=== PATIENT | female | born 1985 | race Caucasian/White ===

== ENCOUNTER 2021-01-15 22:03 | Inpatient (IN) | payer OTHER ==
--- NOTE | 2021-01-15 22:13 | ED ---
Psych HPI - General Stated Complaint: Mental Health Time Seen by Provider: 01/15/21 22:10 Source: RN notes reviewed, old records reviewed Limitations: no limitations - History of Present Illness Initial Comments: This is a 35-year-old female DF for evaluation patient does note she here for psychiatric evaluation with unsure of reason. Per history patient is a poor. Patient is not taking her medications at home she is petition by her mother states that she is noncompliant not active not doing anything not leaving the house and hasn't been acting appropriately. Patient himself denies suicidal or homicidal thoughts Complaint: feels depressed, altered mental status, other (Not taking psychiatric medication) -: days(s) Associated Psychiatric Symptoms: depression History of same: Yes Quality: constant, getting worse Improves With: none Worsens With: none Context: not taking psychiatric medications Associated Symptoms: denies other symptoms Treatments Prior to Arrival: placed on mental health hold - Related Data Home Medications Medication Instructions Recorded Confirmed Cholecalciferol (Vitamin D3) 125 mcg PO DAILY 01/15/21 01/15/21 [Vitamin D3 (5000 Iu)] Famotidine [Pepcid] 20 mg PO DAILY 01/15/21 01/15/21 Paliperidone [Invega] 9 mg PO DAILY 01/15/21 01/15/21 Venlafaxine HCl ER [Effexor XR] 150 mg PO DAILY 01/15/21 01/15/21 clonazePAM [KlonoPIN] 0.5 mg PO DAILY 01/15/21 01/15/21 clonazePAM [KlonoPIN] 1 mg PO HS 01/15/21 01/15/21 lamoTRIgine 100 mg PO BID 01/15/21 01/15/21 Allergies Allergy/AdvReac Type Severity Reaction Status Date / Time No Known Allergies Allergy Unverified 01/15/21 23:12 Review of Systems ROS Statement: Those systems with pertinent positive or pertinent negative responses have been documented in the HPI. ROS Other: All systems not noted in ROS Statement are negative. General Exam General appearance: alert, in no apparent distress Head exam: Present: atraumatic, normocephalic, normal inspection Eye exam: Present: normal appearance, PERRL, EOMI. Absent: scleral icterus, conjunctival injection, periorbital swelling ENT exam: Present: normal exam, mucous membranes moist Neck exam: Present: normal inspection. Absent: tenderness, meningismus, lymphadenopathy Respiratory exam: Present: normal lung sounds bilaterally. Absent: respiratory distress, wheezes, rales, rhonchi, stridor Cardiovascular Exam: Present: regular rate, normal rhythm, normal heart sounds. Absent: systolic murmur, diastolic murmur, rubs, gallop, clicks GI/Abdominal exam: Present: soft, normal bowel sounds. Absent: distended, tenderness, guarding, rebound, rigid Extremities exam: Present: normal inspection, full ROM, normal capillary refill. Absent: tenderness, pedal edema, joint swelling, calf tenderness Back exam: Present: normal inspection Neurological exam: Present: alert, oriented X3, CN II-XII intact Psychiatric exam: Present: normal affect, normal mood Skin exam: Present: warm, dry, intact, normal color. Absent: rash Course Vital Signs 01/15/21 22:11 Temperature 97.9 F Pulse Rate 88 Respiratory 18 Rate Blood Pressure 147/93 O2 Sat by Pulse 99 Oximetry - Reevaluation(s) Reevaluation #1: 01/16/21 02:16 Medical record is reviewed Reevaluation #2: 01/16/21 02:16 Patient medically clear for psychiatric evaluation Medical Decision Making - Medical Decision Making 35 female will be admitted for psychiatric evaluation and treatment - Lab Data Lab Results 01/15/21 Range/Units 23:13 Urine Opiates Screen Not Detected (NotDetected) Ur Oxycodone Screen Not Detected (NotDetected) Urine Methadone Screen Not Detected (NotDetected) Ur Propoxyphene Screen Not Detected (NotDetected) Ur Barbiturates Screen Not Detected (NotDetected) U Tricyclic Antidepress Not Detected (NotDetected) Ur Phencyclidine Scrn Not Detected (NotDetected) Ur Amphetamines Screen Not Detected (NotDetected) U Methamphetamines Scrn Not Detected (NotDetected) U Benzodiazepines Scrn Not Detected (NotDetected) Urine Cocaine Screen Not Detected (NotDetected) U Marijuana (THC) Screen Not Detected (NotDetected) Disposition Clinical Impression: Depression, Noncompliance with medication regimen Disposition: TRANSFER TO PSYCH HOSP/UNIT Condition: Fair Is patient prescribed a controlled substance at d/c from ED?: No Referrals: None,Stated [Primary Care Provider] - 1-2 days
[2021-01-15 23:51] LABS: Amphetamine Screen,Urine Not Detected (NotDetected); Barbiturate Screen,Urine Not Detected (NotDetected); Benzodiazepines Screen,Urine Not Detected (NotDetected); Cocaine Screen,Urine Not Detected (NotDetected); Methadone Screen, Urine Not Detected (NotDetected); Opiate Screen,Urine Not Detected (NotDetected); Oxycodone Screen, Urine Not Detected (NotDetected); Phencyclidine Screen,Urine Not Detected (NotDetected); Tricyclic Antidepressant,Urine Not Detected (NotDetected); Urn Cannabinoid Scrn Not Detected (NotDetected)
[2021-01-16 02:37] LABS: Appearance,Urine Cloudy (Clear); Bilirubin,Urine Negative (Negative); Blood,Urine Negative (Negative); Color,Urine Yellow; Glucose,Urine (UA) Negative (Negative); Hyaline Casts,Urine 11 /lpf (0-2); Ketones,Urine Negative (Negative); Leukocyte Esterase,Urine Small (Negative); Mucus,Urine Occasional /hpf; Nitrite,Urine Negative (Negative); PH, Urine 5.5 (5.0-8.0); Protein,Urine Negative (Negative); RBC,Urine 1 /hpf (0-5); Specific Gravity,Urine 1.015 (1.001-1.035); Squamous Epithelial Cell,Urine 4 /hpf (0-4); Urobilinogen,Urine <2.0 mg/dL (<2.0); WBC,Urine 4 /hpf (0-5)
[2021-01-16 02:48] LABS: Anisocytosis Slight; Basophils % (A) 0 %; Eosinophils # (A) 0.1 k/uL (0-0.7); Eosinophils % (A) 1 %; HCT 34.5 % (34.0-46.0); HGB 11.2 gm/dL (11.4-16.0); Hypochromasia Moderate; Lymphocytes # (A) 2.6 k/uL (1.0-4.8); Lymphocytes % (A) 29 %; MCH 22.5 pg (25.0-35.0); MCHC 32.4 g/dL (31.0-37.0); MCV 69.4 fL (80.0-100.0); Microcytosis Marked; Monocytes # (A) 0.6 k/uL (0-1.0); Monocytes % (A) 7 %; Neutrophils # (A) 5.7 k/uL (1.3-7.7); Neutrophils % (A) 62 %; Platelet Count 205 k/uL (150-450); RBC 4.97 m/uL (3.80-5.40); RDW 18.4 % (11.5-15.5); WBC 9.2 k/uL (3.8-10.6)
[2021-01-16 03:01] LABS: ALT 17 U/L (4-34); AST 20 U/L (14-36); African American GFR (CKD) >90 (>60 ml/min/1.73 sqM); Albumin 4.1 g/dL (3.5-5.0); Alkaline Phosphatase 82 U/L (38-126); Anion Gap 6 mmol/L; Blood Urea Nitrogen 12 mg/dL (7-17); Calcium 9.2 mg/dL (8.4-10.2); Carbon Dioxide 24 mmol/L (22-30); Chloride 109 mmol/L (98-107); Glucose 92 mg/dL (74-99); Non-African American GFR(CKD) >90 (>60 ml/min/1.73 sqM); Potassium 4.2 mmol/L (3.5-5.1); Sodium 139 mmol/L (137-145); Total Bilirubin 0.3 mg/dL (0.2-1.3); Total Protein 6.9 g/dL (6.3-8.2)
[2021-01-16] MEDS ORDERED: LORazepam 1 MG TAB PO PRN (03:45)
[2021-01-16] MEDS ORDERED: ACETAMINOPHEN TAB 325 MG TAB PO PRN (03:45)
[2021-01-16] MEDS ORDERED: MAG HYDROX/AL HYDROX/SIMETH 30 ML CUP PO PRN (03:45)
[2021-01-16] MEDS ORDERED: MAGNESIUM HYDROXIDE 2,400 MG/10 ML CUP PO PRN (03:45)
[2021-01-16] MEDS ORDERED: LORazepam 2 MG/ML INJ IM PRN (03:47)
[2021-01-16] MEDS ORDERED: HALOPERIDOL LACTATE 5 MG/ML 1 ML VIAL IM PRN (03:48)
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
[2021-01-16 14:05] LABS: Hemoglobin A1C 5.1 % (4.0-6.0)
--- NOTE | 2021-01-16 20:52 | P.MDCNMH ---
History of Present Illness H&P Date: 01/16/21 Chief Complaint: Abnormal behavior. Patient is a 35-year-old female with a known history of schizophrenia, anorexia was brought to the hospital by her family due to psychiatric evaluation. Patient has not been taking her medications and not following with mental health clinic. Patient was petitioned by her mother who states that she is noncompliant and not back to and not doing anything and has not been acting appropriately. Patient is a very poor historian. Denies any complaints of chest pain or shortness breath. No nausea vomiting or abdominal pain or diarrhea. Denied any fever or chills. No cough or sputum production. On admission blood pressure is 147/93 and pulse is 88 respiration 18 and pulse ox 90 was the room air. Laboratory data show WBC 9.2 hemoglobin 11.2 platelets 205 Sodium 139 potassium 4.2 chloride 109 BUN 12 and creatinine 0.73 AST ALT alk phos within normal limits and TSH level is 3.42 within normal limits urinalysis is negative for infection. UDS is negative Coronavirus PCR not detected Review of Systems Complete review of systems could not be obtained except as per HPI. Past Medical History Past Medical History: No Reported History History of Any Multi-Drug Resistant Organisms: None Reported Past Surgical History: Orthopedic Surgery Additional Past Surgical History / Comment(s): Tibial/fibial spiral fracture Smoking Status: Never smoker Medications and Allergies Home Medications Medication Instructions Recorded Confirmed Type Cholecalciferol (Vitamin D3) 125 mcg PO DAILY 01/15/21 01/16/21 History [Vitamin D3 (5000 Iu)] Famotidine [Pepcid] 20 mg PO DAILY 01/15/21 01/16/21 History Paliperidone [Invega] 9 mg PO DAILY 01/15/21 01/16/21 History Venlafaxine HCl ER [Effexor XR] 150 mg PO DAILY 01/15/21 01/16/21 History clonazePAM [KlonoPIN] 0.5 mg PO DAILY 01/15/21 01/16/21 History clonazePAM [KlonoPIN] 1 mg PO HS 01/15/21 01/16/21 History lamoTRIgine 100 mg PO BID 01/15/21 01/16/21 History Allergies Allergy/AdvReac Type Severity Reaction Status Date / Time No Known Allergies Allergy Unverified 01/16/21 03:49 Physical Exam Vitals: Vital Signs Temp Pulse Pulse Resp BP BP Pulse Ox 01/16/21 04:01 97.4 F L 95 16 128/83 97 01/15/21 22:11 97.9 F 88 18 147/93 99 Intake and Output 01/16/21 01/16/21 01/16/21 06:59 14:59 22:59 Other: Weight 124.965 kg PHYSICAL EXAMINATION: Patient is lying in the bed comfortably, no acute distress, awake alert and oriented.. HEENT: Normocephalic. Neck is supple. Pupils reactive. Nostrils clear. Oral cavity is moist. Neck reveals no JVD, carotid bruits, or thyromegaly. CHEST EXAMINATION: Trachea is central. Symmetrical expansion. Lung bernal clear to auscultation and percussion. CARDIAC: Normal S1, S2 with no gallops. No murmurs ABDOMEN: Soft. Bowel sounds normal. No organomegaly. No abdominal bruits. Extremities: reveal no edema. No clubbing or cyanosis Neurologically awake, alert, oriented x2-3 with well-coordinated movements. No focal deficits noted Skin: No rash or skin lesions. Facial hair present. Psychiatric: Coperative. Denied suicidal ideation. Musculoskeletal: No joint swelling or deformity. Normal range of motion. Cranial Nerve Examination - Cranial Nerves Cranial Nerve I- Olfactory: Intact Cranial Nerve II- Optic: Intact Cranial Nerve III- Oculomotor: Intact Cranial Nerve IV- Trochlear: Intact Cranial Nerve V- Trigeminal: Intact Cranial Nerve - Abducens: Intact Cranial Nerve VII- Facial: Intact Cranial Nerve VIII- Auditory: Intact Cranial Nerve IX- Glossopharyngeal: Intact Cranial Nerve X- Vagus: Intact Cranial Nerve XI- Accessory: Intact Cranial Nerve XII- Hypoglossal: Intact Results CBC & Chem 7: 01/16/21 01:42 01/16/21 01:42 Labs: Abnormal Lab Results - Last 24 Hours (Table) 01/15/21 01/16/21 01/16/21 Range/Units 23:10 01:42 01:42 Hgb 11.2 L (11.4-16.0) gm/dL MCV 69.4 L (80.0-100.0) fL MCH 22.5 L (25.0-35.0) pg RDW 18.4 H (11.5-15.5) % Chloride 109 H (98-107) mmol/L Urine Appearance Cloudy H (Clear) Ur Leukocyte Esterase Small H (Negative) Hyaline Casts 11 H (0-2) /lpf Urine Mucus Occasional H (None) /hpf Assessment and Plan Assessment: Schizophrenia Noncompliant with medications and follow-up. History of schizophrenia and anorexia Elevated blood pressures on admission due to agitation. Improved now. DVT prophylaxis with early ambulation Plan: Patient will be continued on current psychiatric medications and management. Haldol as needed for agitation. Continued on home medications and will follow with you. Thank you for your consult.
[2021-01-16] MEDS: PALIPERIDONE 3 MG TAB.ER.24 PO SCH (21:34)
[2021-01-17] MEDS: LORazepam 1 MG TAB PO SCH ×4 (15:10→21:44)
[2021-01-17] MEDS: PALIPERIDONE 6 MG TAB.ER.24 PO SCH (15:11)
--- NOTE | 2021-01-17 19:39 | PN ---
PROGRESS NOTE DATE OF SERVICE: 01/17/2021 CHIEF COMPLAINT: The patient was responding to internal stimuli. She stopped taking medications. She has disorganized behavior. INTERVAL HISTORY: The patient has been doing fair. She had a quiet day yesterday. She will come out on the unit, though mostly she keeps to herself. She seems to pay attention to things going on around her, though she does not interact too much with others. She attended one group yesterday and seemed to generally respond appropriately within the group setting. She did not go to other groups. She spent a fair amount of time in her room. She slept fairly well last night. Today she has been doing about the same. She has spent much of the day in her room lying in bed. It is not clear that she actually is sleeping. When I talked to her the patient gave permission for me to call her significant other who is currently residing in [place] where the two of them had been living. Her significant other is in the [employer] and apparently is in the process of being re-stationed. The circumstances of the patient actually coming to [place] is somewhat unclear. It is noted that the patient was hospitalized in [place] for 40 days. Apparently she has been having problems on and off going back to 2014. She would have episodes where she would suddenly become distressed. She would make odd noises that ultimately would turn into screaming. Leading up to her hospitalization in [place] she was becoming more and more dysfunctional to the point where she would barely be able to function at all. 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 She got to the point where she was not at all able to communicate and sometimes could only get one word out and other times not even that. During her hospitalization in [place] she received 11 ECT treatments for catatonia along with psychosis. She showed some improvement. When she was relocated to [place] she got started on Invega and her significant other noted that she improved even more where she could engage much more in a normal conversation. She could talk about making plans and so forth. She has been living with her mother. The significant other noted on December 17 she just suddenly stop taking her medications altogether. It was unclear what the reason was for this, though since then she has gone down hill precipitously. She has gotten back into where she has less and less communication. She has been functioning poorly at home. She stopped responding to any telephone calls from her significant other in the past week for no clear reason. When I talked to the patient she did not provide much information. She would respond to basic questions though then often would have more of a staring gaze than anything else. She would have a fixed smile on her face at times. She has been taking medications and does not note any side effects or problems with her medications. MENTAL STATUS EXAM: The patient sat without restlessness. She had a somewhat rigid posture. She gave fairly good eye contact, though at times almost seemed to have a staring gaze. She responded minimally to questions though she would get out 1 or 2 word responses. At times she would have a smile on her face that seemed to be incongruent with the issues we were talking about. Her affect was constricted, her mood reserved. It was difficult to be clear to what extent she might be distressed. She seemed to show some response to internal stimuli. There was no indication of thoughts of harm. She appeared to be aware of circumstances and surroundings. ASSESSMENT: I will continue the current diagnosis and treatment plan. I will increase Invega to 6 mg in the morning and continue 3 mg at bedtime. I will also start the patient on Ativan 1 mg 3 times a day. The aim of Ativan is to address potential catatonic symptoms. We will monitor over the next 1 or 2 days to see if she does show response as an indicator for some issues of catatonia in addition to her psychosis. The patient's mother will be bringing in hospital records from the stay in [place] as apparently she has all of the records available. We will focus on stabilization and discharge planning. MMWM / VASILIYN: [id number] /
[2021-01-17] MEDS: PALIPERIDONE 3 MG TAB.ER.24 PO SCH (21:42)
[2021-01-18] MEDS: LORazepam 1 MG TAB PO SCH ×3 (09:18→21:32)
[2021-01-18] MEDS: PALIPERIDONE 6 MG TAB.ER.24 PO SCH (09:18)
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
[2021-01-18] MEDS: PALIPERIDONE 3 MG TAB.ER.24 PO SCH (21:32)
[2021-01-19] MEDS: PALIPERIDONE 6 MG TAB.ER.24 PO SCH (08:12)
[2021-01-19] MEDS: LORazepam 1 MG TAB PO SCH ×3 (08:12→23:58)
[2021-01-19] MEDS: PALIPERIDONE 3 MG TAB.ER.24 PO SCH (21:04)
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
[2021-01-20] MEDS: PALIPERIDONE 6 MG TAB.ER.24 PO SCH (09:20)
[2021-01-20] MEDS: LORazepam 1 MG TAB PO SCH ×3 (09:21→20:57)
[2021-01-20] MEDS ORDERED: PALIPERIDONE IM 234 MG/1.5 ML SYG IM STA (10:58)
--- NOTE | 2021-01-20 19:16 | PN ---
PROGRESS NOTE DATE OF SERVICE: 01/20/2021. CHIEF COMPLAINT: The patient was responding to internal stimuli. She stopped taking medications. She had disorganized behavior. INTERVAL HISTORY: Patient has been doing fair. She had a quiet day yesterday. She spent a fair amount of time in her room. She did come out for one group. She was out in the day area some. She slept fairly well last night, today she has been up. She did attend a noon group today. It is noted that mid day she was seeing walking back and forth in a very brisk manner with her arms pulled up almost as if she was in a running posture. She was resistant to being interrupted during the walking, which seemed to be a therapeutic or exercise walk for her. When I talked to her after the walk. She did not say much. She did answer a few questions. She has had no issues with the start of the Invega Sustenna. She seemed to have fair understanding of the petition process and is still on standby waiting to make a determination in regards to a deferral. She tolerates her psychotropic medications. MENTAL STATUS: Patient gave fair eye contact. She was fairly restless. She answered some questions with brief responses. She did not say a lot. Her affect was constricted. She had a quiet mood. It was noteworthy that she did not have any odd behavior or any signs of catatonic symptoms. Did not show odd facial expressions that she had been in the last few days. She does seem to respond to internal stimuli. She did not indicate any thoughts of harm. Cognition appeared clear. ASSESSMENT: I will continue the current diagnosis and treatment plan. The patient did receive Invega Sustenna 234 mg IM. I will continue oral Invega 6 mg in the morning, 3 mg in the evening. I would look to slowly taper the oral Invega. She will be due for her followup injection in one week. We still have court issues pending. I reviewed an extensive number of records that mother provided regarding medical evaluations and her hospitalization in [place]. It is noted that she had an endocrine evaluation due to hirsutism. There were no definitive findings, though there was suggestion of having followup studies for possible Ghada's syndrome or other adrenal disorders. We will focus on stabilization and discharge planning. MMODL / IJN: [id number] /
[2021-01-20] MEDS: PALIPERIDONE 3 MG TAB.ER.24 PO SCH (20:56)
[2021-01-21] MEDS: PALIPERIDONE 6 MG TAB.ER.24 PO SCH (09:55)
[2021-01-21] MEDS: LORazepam 1 MG TAB PO SCH ×3 (09:55→22:29)
--- NOTE | 2021-01-21 10:07 | P.PN ---
Progress Note - Text Progress Note Date: 01/21/21 Interval History: Patient was seen wandering the hallways and was directable and agreeable to speak with senior mortgage underwriter in the office. The patient reports that she is doing well. She did receive Invega Sustenna yesterday and is not endorsing any significant side effects aside from muscle soreness at the injection site. She continues to spend her days wandering the hallways. The patient continues to display significantly poor insight into her condition as she is uncertain about the reason for her hospitalization or her need for medications. She is denying any overt auditory or visual hallucinations. She is denying any suicidal or homicidal ideation, intention, and/or plan. She denies any issues regarding her appetite or sleep. The patient does state that she feels like she is currently admitted to the hospital because her mother and "do not like me." The p atmu was unable to expand, but replies that, "if they liked me they wouldn't put me on medications." Mental Status Exam: General Appearance: Patient appears to be stated age is alert, directable, and cooperative. Patient is tall and large significant hirsutism. Behavior: Patient is calmly seated without any agitated behavior. Eye contact is appropriate. Psychomotor activity appears normal. Speech: Patient's speech is fluent and nonpressured. Monotone, nonspontaneous. Mood/Affect: Mood is "feeling okay." Affect is blunted. Suicidality/Homicidality: Patient is not reporting any suicidal or homicidal ideation, intention, and/or plan. Perceptions: The patient is not endorsing any auditory or visual hallucinations. She does appear to be her spine to internal stimuli at times. Though content/process: Some delusional thought content towards the patient's mother and present. Memory and concentration: AOX3, grossly intact for the purposes of this session Judgment and insight: Poor Vital Signs Temp 97.9 F 01/20/21 06:41 Pulse 87 01/20/21 06:41 Resp 16 01/20/21 06:41 BP 128/72 01/20/21 06:41 Pulse Ox 97 01/16/21 04:01 Assessment Schizophrenia Plan: -Patient continues to meet criteria for inpatient psychiatric admission for symptom stabilization and safety. The patient has been petitioned and certified. She deferred mental health court. -Medications: Continue Invega 6 mg by mouth daily, 3 mg by mouth at bedtime for mood stabilization/psychosis. Patient received Invega Sustenna 234 mg IM on 01/20/21. -When necessary Ativan and Haldol for agitation/aggression. -SW on board for discharge planning. Encouraged the patient to participate in milieu.
[2021-01-21] MEDS: PALIPERIDONE 3 MG TAB.ER.24 PO SCH (20:52)
[2021-01-22] MEDS: PALIPERIDONE 6 MG TAB.ER.24 PO SCH (09:07)
[2021-01-22] MEDS: LORazepam 1 MG TAB PO SCH ×2 (09:07→19:25)
--- NOTE | 2021-01-22 12:07 | P.PN ---
Progress Note - Text Progress Note Date: 01/22/21 Interval History: Patient was seen wandering the hallways and was directable and agreeable to s addison with credit underwriter in the office. The patient reports she is doing well. She is currently not endorsing any suicidal or homicidal ideation, intention, and/or plan. She reports no auditory or visual hallucinations. She denies any paranoia or delusions. She reports no issues with sleep or appetite. She has been noted by staff to be walking briskly on the unit as a form of exercise. The patient continues to have poor insight into why she is currently admitted to the hospital but has been intermittently agreeable with treatment. She did receive invega sustenna but refused her morning oral medication dose. She is not reporting any side effects of her medications. As per discussion with her mother, the patient has displayed improvement but continues to exhibit poor insight. She is more open and talking more with her family. Mental Status Exam: General Appearance: Patient appears to be stated age is alert, directable, and cooperative. Patient is tall and large significant hirsutism. Behavior: Patient is calmly seated without any agitated behavior. Eye contact is appropriate. Psychomotor activity appears normal. Speech: Patient's speech is fluent and nonpressured. Monotone, nonspontaneous. Mood/Affect: Mood is "feeling okay." Affect is constricted but bright. Suicidality/Homicidality: Patient is not reporting any suicidal or homicidal ideation, intention, and/or plan. Perceptions: Patient is not reporting any auditory or visual hallucinations. Though content/process: No delusional thought content is endorsed today. Memory and concentration: AOX3, grossly intact for the purposes of this session Judgment and insight: Mildly improving Vital Signs Temp 97.9 F 01/20/21 06:41 Pulse 87 01/20/21 06:41 Resp 16 01/20/21 06:41 BP 128/72 01/20/21 06:41 Pulse Ox 97 01/16/21 04:01 Assessment Schizophrenia Plan: -Patient continues to meet criteria for inpatient psychiatric admission for symptom stabilization and safety. The patient has been petitioned and certified. She deferred mental health court. -Medications: Continue Invega 6 mg by mouth at bedtime for psychosis. Patient received Invega Sustenna 234 mg IM on 01/20/21. We will give the second loading dose of Invega Sustenna on Tuesday01/26/21. -When necessary Ativan and Haldol for agitation/aggression. -SW on board for discharge planning. Encouraged the patient to participate in milieu.
[2021-01-22] MEDS ORDERED: PALIPERIDONE 6 MG TAB.ER.24 PO SCH (21:00)
[2021-01-23] MEDS: LORazepam 1 MG TAB PO SCH ×4 (05:34→22:50)
--- NOTE | 2021-01-23 12:43 | P.PN ---
Progress Note - Text Progress Note Date: 01/23/21 Interval History: Patient was seen wandering the hallways and was directable and agreeable to s dinah with engineering writer in the office. The patient reports that she is doing well. She is currently not reporting any suicidal or homicidal ideation, intention, and/or plan. She is not reporting any auditory or visual hallucinations. She is denying any paranoia or other delusions. The patient reports she spends most of her days reading the novel "[employer]." The patient also reports that she has been speaking to her mother over the phone daily. She has been in adherent with her medication is not reporting any significant side effects at this time. Patient is agreeable to receiving the secondInvega Sustenna. She is looking for to discharge on Tuesday. The patient wanders the hallways as a form of exercise. She intermittently attends groups. Mental Status Exam: General Appearance: Patient appears to be stated age is alert, directable, and cooperative. Patient is tall and large significant hirsutism. Behavior: Patient is calmly seated without any agitated behavior. Eye contact is appropriate. Psychomotor activity appears normal. Speech: Patient's speech is fluent and nonpressured. Monotone, nonspontaneous. Mood/Affect: Mood is "doing good." Affect is constricted but bright. Suicidality/Homicidality: Patient is not reporting any suicidal or homicidal ideation, intention, and/or plan. Perceptions: Patient is not reporting any auditory or visual hallucinations. Though content/process: No delusional thought content is endorsed today. Memory and concentration: AOX3, grossly intact for the purposes of this session Judgment and insight: Mildly improving Vital Signs Temp 97.7 F 01/23/21 06:46 Pulse 86 01/23/21 06:46 Resp 18 01/23/21 06:46 BP 123/85 01/23/21 06:46 Pulse Ox 97 01/16/21 04:01 Assessment Schizophrenia Plan: -Patient continues to meet criteria for inpatient psychiatric admission for symptom stabilization and safety. The patient has been petitioned and certified. She deferred mental health court. -Medications: Consider starting metformin Decrease Invega to 3 mg by mouth at bedtime for psychosis. Patient received Invega Sustenna 234 mg IM on 01/20/21. We will give the second loading dose of Invega Sustenna on Tuesday01/26/21. -When necessary Ativan and Haldol for agitation/aggression. -SW on board for discharge planning. Encouraged the patient to participate in milieu.
[2021-01-23] MEDS: PALIPERIDONE 3 MG TAB.ER.24 PO SCH (22:28)
[2021-01-24] MEDS: metFORMIN 500 MG TAB PO SCH ×2 (08:59→16:59)
[2021-01-24] MEDS: LORazepam 1 MG TAB PO SCH ×3 (08:59→21:14)
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
[2021-01-24] MEDS: PALIPERIDONE 3 MG TAB.ER.24 PO SCH (21:14)
[2021-01-25] MEDS: LORazepam 1 MG TAB PO SCH ×3 (08:47→22:02)
[2021-01-25] MEDS: metFORMIN 500 MG TAB PO SCH ×2 (08:47→17:08)
[2021-01-25] MEDS ORDERED: PALIPERIDONE IM 156 MG/ML SYG IM ONE (09:00)
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
[2021-01-25] MEDS: PALIPERIDONE 3 MG TAB.ER.24 PO SCH (22:02)
[2021-01-26 06:46] VITALS: BP 101/55; PULSE 78; RESP 16; TEMP 97.3
[2021-01-26] MEDS: LORazepam 1 MG TAB PO SCH (09:29)
[2021-01-26] MEDS: metFORMIN 500 MG TAB PO SCH (09:29)
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
== END 2021-01-26 12:44 | disposition home or self-care (01) | DRG 885 ==
LOC: EC 22:03 → 3MHU 01-16 03:33
PROVIDERS: ADMIT Psychiatry & Neurology Psychiatry; ATTEND Psychiatry & Neurology Psychiatry
DX: F20.9 Schizophrenia, unspecified (principal); F32.9 Major depressive disorder, single episode, unspecified; L68.0 Hirsutism; Z79.84 Long term (current) use of oral hypoglycemic drugs; Z79.899 Other long term (current) drug therapy; Z81.8 Family history of other mental and behavioral disorders; Z91.14 Patient's other noncompliance with medication regimen; Z91.19 Patient's noncompliance with other medical treatment and regimen; Z20.822 Contact with and (suspected) exposure to COVID-19
CPT/HCPCS: 36415; 80053; 80306; 81001; 81025; 82075; 83036; 84443; 85025; 87635; 99285

== ENCOUNTER 2024-10-03 13:48 | Emergency (ER) | payer OTHER ==
[2024-10-03 13:53] VITALS: TEMP 97.4
[2024-10-03 14:36] LABS: Basophils % (A) 0 %; Eosinophils # (A) 0.1 k/uL (0-0.7); Eosinophils % (A) 1 %; HCT 45.4 % (34.0-46.0); HGB 13.9 gm/dL (11.4-16.0); Lymphocytes # (A) 2.2 k/uL (1.0-4.8); Lymphocytes % (A) 24 %; MCH 25.7 pg (25.0-35.0); MCHC 30.7 g/dL (31.0-37.0); MCV 83.7 fL (80.0-100.0); Mean Platelet Volume 7.7; Monocytes # (A) 0.5 k/uL (0-1.0); Monocytes % (A) 5 %; Neutrophils # (A) 6.2 k/uL (1.3-7.7); Neutrophils % (A) 68 %; Platelet Count 239 k/uL (150-450); RBC 5.43 m/uL (3.80-5.40); RDW 15.6 % (11.5-15.5); WBC 9.2 k/uL (3.8-10.6)
--- NOTE | 2024-10-03 14:38 | ED ---
General Adult HPI - General Chief complaint: Arrhythmia/Palpitations Stated complaint: heart issue Time Seen by Provider: 10/03/24 14:00 Source: patient, RN notes reviewed, old records reviewed Mode of arrival: ambulatory Limitations: no limitations - History of Present Illness Initial comments: This is a 39-year-old female who has a past medical history significant for schizophrenia. Patient states that her heart told her to come to the ER. According to the mother she has been indicating that someone was going on with her heart but she is not able to describe what she denies pain she denies shortness of breath she denies her heart racing fast. Patient denies any recent fever chills or cough. Patient denies any drug use and mom states the patient does not have any access to drugs. Mom states is very difficult to understand exactly her complaint because she cannot express herself very well but she does indicate that she feels different and so mom wants her at least checked out. - Related Data Previous Rx's Medication Instructions Recorded Cholecalciferol (Vitamin D3) 125 mcg PO DAILY 30 Days cap 01/26/21 [Vitamin D3 (5000 Iu)] Paliperidone IM [Invega Sustenna] 156 mg IM QMONTHLY #1 syr 01/26/21 metFORMIN HCL [Glucophage] 500 mg PO BID-W/MEALS 30 Days tab 01/26/21 Allergies Allergy/AdvReac Type Severity Reaction Status Date / Time No Known Allergies Allergy Verified 10/03/24 13:53 Review of Systems ROS Statement: Those systems with pertinent positive or pertinent negative responses have been documented in the HPI. ROS Other: All systems not noted in ROS Statement are negative. Past Medical History Past Medical History: No Reported History, Hypertension History of Any Multi-Drug Resistant Organisms: None Reported Past Surgical History: Orthopedic Surgery Additional Past Surgical History / Comment(s): Tibial/fibial spiral fracture Past Psychological History: Schizophrenia Smoking Status: Never smoker Past Alcohol Use History: Occasional Past Drug Use History: None Reported General Exam - General Exam Comments Initial Comments: GENERAL: Patient is well-developed and well-nourished. Patient is nontoxic and well- hydrated and is in no acute distress. ENT: Neck is soft and supple. No significant lymphadenopathy is noted. Oropharynx is clear. Moist mucous membranes. Neck has full range of motion without eliciting any pain. EYES: The sclera were anicteric and conjunctiva were pink and moist. Extraocular movements were intact and pupils were equal round and reactive to light. Eyelids were unremarkable. PULMONARY: Unlabored respirations. Good breath sounds bilaterally. No audible rales rhonchi or wheezing was noted. CARDIOVASCULAR: There is a regular rate and rhythm without any murmurs gallops or rubs. ABDOMEN: Soft and nontender with normal bowel sounds. SKIN: Skin is clear with no lesions or rashes and otherwise unremarkable. NEUROLOGIC: Patient is alert and oriented x3. Cranial nerves II through XII are grossly intact. Motor and sensory are also intact. Normal speech, volume and content. Symmetrical smile. MUSCULOSKELETAL: Normal extremities with adequate strength and full range of motion. No lower extremity swelling or edema. No calf tenderness. LYMPHATICS: No significant lymphadenopathy is noted PSYCHIATRIC: Normal psychiatric evaluation. Limitations: no limitations Course Vital Signs 10/03/24 10/03/24 10/03/24 13:49 14:30 15:00 Temperature 97.4 F L Pulse Rate 98 96 81 Respiratory 18 21 21 Rate Blood Pressure 169/121 151/89 151/89 O2 Sat by Pulse 98 93 L 95 Oximetry 10/03/24 15:08 Temperature Pulse Rate 84 Respiratory 18 Rate Blood Pressure 136/88 O2 Sat by Pulse 96 Oximetry Medical Decision Making - Medical Decision Making EKG is interpreted by myself. EKG shows sinus rhythm at 91 bpm UT was under 48 QRS is 86 QT interval 333 QTc is 382. Patient's EKG shows no ST segment elevation or depression. Was pt. sent in by a medical professional or institution (, [facility], TECHNICAL PRODUCER, urgent care, hospital, or retirement...) When possible be specific @ -No Did you speak to anyone other than the patient for history (EMS, parent, family, police, friend...)? What history was obtained from this source @ -No Did you review nursing and triage notes (agree or disagree)? Why? @ -I reviewed and agree with nursing and triage notes Were old charts reviewed (outside hosp., previous admission, EMS record, old EKG, old radiological studies, urgent care reports/EKG's, retirement records)? Report findings @ -No old charts were reviewed Differential Diagnosis? @ -Differential Palpitations Ventricular arrhythmias, atrial arrhythmias, myocardial infarction, anemia, thyrotoxicosis, electrolyte imbalance, hypokalemia, pulmonary embolism, pulmonar y disease, drugs, alcohol, anxiety, stress.... This is not meant to be an all-inclusive list. EKG interpreted by me (3pts min.). @ -As above X-rays interpreted by me (1pt min.). @ -Chest x-ray shows no acute abdominal CT interpreted by me (1pt min.). @ -CTA of the chest shows no pulmonary embolism or acute abnormality U/S interpreted by me (1pt. min.). @ -None done What testing was considered but not performed or refused? (CT, X-rays, U/S, labs)? Why? @ -None What meds were considered but not given or refused? Why? @ -None Did you discuss the management of the patient with other professionals (professionals i.e. , PA, TECHNICAL PRODUCER, lab, RT, psych nurse, social services specialist, record tabulating clerk, teacher, chief media officer, binder caser)? Give summary @ -No Was smoking cessation discussed for >3mins.? @ -No Was critical care preformed (if so, how long)? @ -No Were there social determinants of health that impacted care today? How? (Homelessness, low income, unemployed, alcoholism, drug addiction, transportation, low edu. Level, literacy, decrease access to med. care, shelter, rehab)? @ -No Was there de-escalation of care discussed even if they declined (Discuss DNR or withdrawal of care, Hospice)? DNR status @ -No What co-morbidities impacted this encounter? (DM, HTN, Smoking, COPD, CAD, Cancer, CVA, ARF, Chemo, Hep., AIDS, mental health diagnosis, sleep apnea, morbid obesity)? @ -None Was patient admitted / discharged? Hospital course, mention meds given and route, prescriptions, significant lab abnormalities, going to OR and other pertinent info. @ -Patient was in no distress throughout her ED stay I went back to give the results to her the patient and her mother and at this time she had no complaints. Undiagnosed new problem with uncertain prognosis? @ -No Drug Therapy requiring intensive monitoring for toxicity (Heparin, Nitro, Insulin, Cardizem)? @ -No Were any procedures done? @ -No Diagnosis/symptom? @ -Palpitations Acute, or Chronic, or Acute on Chronic? @ -Acute Uncomplicated (without systemic symptoms) or Complicated (systemic symptoms)? @ -Complicated Side effects of treatment? @ -No Exacerbation, Progression, or Severe Exacerbation? @ -No Poses a threat to life or bodily function? How? (Chest pain, [place], [place], pneumonia, PE, COPD, DKA, ARF, appy, cholecystitis, CVA, Diverticulitis, Homicidal, Suicidal, threat to staff... and all critical care pts) @ -No - Lab Data Result diagrams: 10/03/24 14:28 10/03/24 14:28 Lab Results 10/03/24 10/03/24 10/03/24 Range/Units 14:28 14:28 14:28 WBC 9.2 (3.8-10.6) k/uL RBC 5.43 H (3.80-5.40) m/uL Hgb 13.9 (11.4-16.0) gm/dL Hct 45.4 (34.0-46.0) % MCV 83.7 (80.0-100.0) fL MCH 25.7 (25.0-35.0) pg MCHC 30.7 L (31.0-37.0) g/dL RDW 15.6 H (11.5-15.5) % Plt Count 239 (150-450) k/uL MPV 7.7 Neutrophils % 68 % Lymphocytes % 24 % Monocytes % 5 % Eosinophils % 1 % Basophils % 0 % Neutrophils # 6.2 (1.3-7.7) k/uL Lymphocytes # 2.2 (1.0-4.8) k/uL Monocytes # 0.5 (0-1.0) k/uL Eosinophils # 0.1 (0-0.7) k/uL Basophils # 0.0 (0-0.2) k/uL PT 10.8 (10.0-12.5) sec INR 1.0 (<1.2) APTT 23.4 (22.0-30.0) sec D-Dimer 0.85 H (<0.60) mg/L FEU Sodium 137 (137-145) mmol/L Potassium 4.2 (3.5-5.1) mmol/L Chloride 101 (98-107) mmol/L Carbon Dioxide 26 (22-30) mmol/L Anion Gap 10 mmol/L BUN 13 (7-17) mg/dL Creatinine 0.73 (0.52-1.04) mg/dL Est GFR (CKD-EPI)AfAm >90 (>60 ml/min/1.73 sqM) Est GFR (CKD-EPI)NonAf >90 (>60 ml/min/1.73 sqM) Glucose 130 H (74-99) mg/dL Calcium 9.9 (8.4-10.2) mg/dL Magnesium 1.9 (1.6-2.3) mg/dL Total Bilirubin 0.5 (0.2-1.3) mg/dL AST 29 (14-36) U/L ALT 32 (4-34) U/L Alkaline Phosphatase 84 (38-126) U/L Troponin I (0.000-0.034) ng/mL Total Protein 7.6 (6.3-8.2) g/dL Albumin 4.6 (3.5-5.0) g/dL TSH 2.320 (0.465-4.680) mIU/L 10/03/24 Range/Units 14:28 WBC (3.8-10.6) k/uL RBC (3.80-5.40) m/uL Hgb (11.4-16.0) gm/dL Hct (34.0-46.0) % MCV (80.0-100.0) fL MCH (25.0-35.0) pg MCHC (31.0-37.0) g/dL RDW (11.5-15.5) % Plt Count (150-450) k/uL MPV Neutrophils % % Lymphocytes % % Monocytes % % Eosinophils % % Basophils % % Neutrophils # (1.3-7.7) k/uL Lymphocytes # (1.0-4.8) k/uL Monocytes # (0-1.0) k/uL Eosinophils # (0-0.7) k/uL Basophils # (0-0.2) k/uL PT (10.0-12.5) sec INR (<1.2) APTT (22.0-30.0) sec D-Dimer (<0.60) mg/L FEU Sodium (137-145) mmol/L Potassium (3.5-5.1) mmol/L Chloride (98-107) mmol/L Carbon Dioxide (22-30) mmol/L Anion Gap mmol/L BUN (7-17) mg/dL Creatinine (0.52-1.04) mg/dL Est GFR (CKD-EPI)AfAm (>60 ml/min/1.73 sqM) Est GFR (CKD-EPI)NonAf (>60 ml/min/1.73 sqM) Glucose (74-99) mg/dL Calcium (8.4-10.2) mg/dL Magnesium (1.6-2.3) mg/dL Total Bilirubin (0.2-1.3) mg/dL AST (14-36) U/L ALT (4-34) U/L Alkaline Phosphatase (38-126) U/L Troponin I <0.012 (0.000-0.034) ng/mL Total Protein (6.3-8.2) g/dL Albumin (3.5-5.0) g/dL TSH (0.465-4.680) mIU/L Disposition Clinical Impression: Palpitations Disposition: HOME SELF-CARE Condition: Good Instructions (If sedation given, give patient instructions): Heart Palpitations (ED) Is patient prescribed a controlled substance at d/c from ED?: No Referrals: Gerard Landers MD [Primary Care Provider] - 1-2 days Time of Disposition: 16:16
--- NOTE | 2024-10-03 14:40 | XR ---
EXAMINATION TYPE: XR chest 2V DATE OF EXAM: 10/03/2024 2:36 PM COMPARISON: None TECHNIQUE: XR chest 2V Frontal and lateral views of the chest. CLINICAL INDICATION:Female, 39 years old with history of dysrhythmia; FINDINGS: Lungs/Pleura: There is no evidence of pleural effusion, focal consolidation, or pneumothorax. Pulmonary vascularity: Unremarkable. Heart/mediastinum: Cardiomediastinal silhouette is unremarkable. Musculoskeletal: No acute osseous pathology. IMPRESSION: No acute cardiopulmonary disease/process. [facility], , 10/03/2024 2:37 PM
[2024-10-03 14:46] LABS: ALT 32 U/L (4-34); AST 29 U/L (14-36); African American GFR (CKD) >90 (>60 ml/min/1.73 sqM); Albumin 4.6 g/dL (3.5-5.0); Alkaline Phosphatase 84 U/L (38-126); Anion Gap 10 mmol/L; Blood Urea Nitrogen 13 mg/dL (7-17); Calcium 9.9 mg/dL (8.4-10.2); Carbon Dioxide 26 mmol/L (22-30); Chloride 101 mmol/L (98-107); Glucose 130 mg/dL (74-99); Magnesium 1.9 mg/dL (1.6-2.3); Non-African American GFR(CKD) >90 (>60 ml/min/1.73 sqM); Potassium 4.2 mmol/L (3.5-5.1); Sodium 137 mmol/L (137-145); Total Bilirubin 0.5 mg/dL (0.2-1.3); Total Protein 7.6 g/dL (6.3-8.2)
[2024-10-03 14:49] LABS: Partial Thromboplastin Time 23.4 sec (22.0-30.0); Prothrombin Time 10.8 sec (10.0-12.5)
[2024-10-03 15:10] VITALS: RESP 18
--- NOTE | 2024-10-03 15:45 | CT ---
EXAMINATION TYPE: CT chest angio for PE DATE OF EXAM: 10/03/2024 COMPARISON: None CLINICAL INDICATION: Female, 39 years old with history of Elevated D-dimer, palpitations; PHH, Elevat ed D-dimer, palpitations, SOB or PAIN TECHNIQUE: Ct angiogram of the chest performed with with IV Contrast, patient injected with 100ml mL of Isovue 3 70. MIP images are created and reviewed. The post processing was performed. CT DLP: 1334.[address] CTDI: mGy Automated exposure control for dose reduction was used. FINDINGS: There is suboptimal opacification of the pulmonary arteries. The exam is limited by the patient's bod y habitus. LUNGS: The lungs are grossly clear, there is no concerning parenchymal mass or nodule identified. T here is no pleural effusion or pneumothorax seen. The tracheobronchial tree is patent. MEDIASTINUM: There is satisfactory enhancement of the pulmonary artery and its branches, there is no CT evidence for pulmonary embolism. There are no greater than 1 cm hilar or mediastinal lymph nodes. No pericardial effusion is seen. HEART: Size within normal limits. OTHER: No additional significant abnormality is seen. IMPRESSION: 1. Within limits the exam, there is no evidence pulmonary embolus. 2. Within limits exam, there is no acute cardiopulmonary disease. Follow-up recommendations for incidental pulmonary nodules are per [employer] or [employer]. [facility], , 10/03/2024 3:43 PM
[2024-10-03 16:25] VITALS: BP 151/96; PULSE 88
== END 2024-10-03 16:25 | disposition home or self-care (01) ==
LOC: EC 13:48
DX: R00.2 Palpitations (principal)
CPT/HCPCS: 36415; 93005; 85379; 80053; 83735; 84443; 84484; 85025; 85610; 85730; 71046; 71275; 99285; Q9967